=== PATIENT | female | born 1970 | race Caucasian/White ===

== ENCOUNTER 2019-03-06 10:57 | Emergency (ER) | payer BC, OTHER ==
[2019-03-06 11:37] VITALS: BP 148/101
--- NOTE | 2019-03-06 11:43 | UC ---
Lower Extremity/Ankle HPI - HPI Summary HPI Summary: tripped going up some stairs at work and hit her upper L mendoza and top of L foot. c/o pain/bruising to the top of her L foot. bruise to mendoza. - History of Current Complaint Chief Complaint: UCLowerExtremity Stated Complaint: LEFT FOOT INJURY (WC) Time Seen by Provider: 03/06/19 11:31 Hx Obtained From: Patient Hx Last Menstrual Period: 02/27/16 Onset/Duration: Sudden Onset Pain Intensity: 4 - Allergies/Home Medications Allergies/Adverse Reactions: Allergies Allergy/AdvReac Type Severity Reaction Status Date / Time No Known Allergies Allergy Verified 03/06/19 11:37 Home Medications: Home Medications Naproxen [Naprosyn 500 mg tab] 1,000 mg PO ONCE PRN 03/06/19 [History Confirmed 03/06/19] PMH/Surg Hx/FS Hx/Imm Hx Neurological History: Seizures - Surgical History Surgical History: Yes Surgery Procedure, Year, and Place: appendectomy. tubal ligation. bunionectomy bilat - Family History Known Family History: Positive: None - Social History Alcohol Use: None Substance Use Type: None Smoking Status (MU): Never Smoked Tobacco - Immunization History Most Recent Influenza Vaccination: 1675-1624 Review of Systems All Other Systems Reviewed And Are Negative: No Constitutional: Negative: Fever Skin: Positive: Bruising - L skin/l foot Musculoskeletal: Positive: Edema - L foot. Negative: Decreased ROM Neurological: Negative: Weakness, Paresthesia, Numbness Physical Exam Triage Information Reviewed: Yes Appearance: Well-Appearing Vital Signs: Initial Vital Signs Temp 96 F 03/06/19 11:33 Pulse 80 03/06/19 11:33 Resp 18 03/06/19 11:33 BP 148/101 03/06/19 11:33 Pulse Ox 97 03/06/19 11:33 Vital Signs Reviewed: Yes Respiratory: Positive: No respiratory distress Cardiovascular: Positive: RRR Musculoskeletal: Positive: Other: - LLE: hip is non tender. L knee has no laxity , ROM is intact. Proximal mendoza with slight bruising and swelling but no bony deformity or tenderness. Ankle is non tender. L foot: dorsal brusing, swelling and tenderness, s/v/m is intact. Achilles is non tender. scar dorsal great toe. Neurological: Positive: Alert Psychological: Positive: Age Appropriate Behavior Skin Exam: Normal Diagnostics - Radiology No standard instances Radiology Interpretation Completed By: Radiologist - L FOOT=POSTSURGICAL CHANGE. NO ACUTE OSSEOUS INJURY. IF SYMPTOMS PERSIST, RECOMMEND REPEAT IMAGING. Lower Extremity Course/Dx - Differential Dx/Diagnosis Differential Diagnosis/HQI/PQRI: Other - NO CONCERN FOR INFECTION. NO FX ON XRAY. NO CONCERN FOR COMPARTMENT SYNDROM. Provider Diagnosis: Contusion of left lower leg, Contusion of foot, left Discharge - Sign-Out/Discharge Documenting (check all that apply): Patient Departure All imaging exams completed and their final reports reviewed: Yes - Discharge Plan Condition: Stable Disposition: HOME Patient Education Materials: Foot Contusion (ED) Referrals: Maribell Fu MD [Primary Care Provider] - If Needed - Billing Disposition and Condition Condition: STABLE Disposition: Home
== END 2019-03-06 12:21 | disposition home or self-care (01) ==
LOC: UCCORT 10:57
DX: S80.12XA Contusion of left lower leg, initial encounter (principal); S90.32XA Contusion of left foot, initial encounter; W10.2XXA Fall (on)(from) incline, initial encounter; Y92.9 Unspecified place or not applicable; Y99.0 Civilian activity done for income or pay; M19.072 Primary osteoarthritis, left ankle and foot; R56.9 Unspecified convulsions
CPT/HCPCS: 99211; G0463